=== PATIENT | female | born 1990 | race Caucasian/White ===

== ENCOUNTER 2017-02-23 08:00 | Emergency (ER) | payer OTHER ==
[2017-02-23] MEDS ORDERED: IBUPROFEN 400 MG TABLET (FP) PO ONE (08:10)
[2017-02-23 08:14] VITALS: BP 109/75; PULSE 63; TEMP 98.7; BMI 23.2
--- NOTE | 2017-02-23 08:19 | PDOC ---
History of Present Illness - General Chief Complaint: Injury Stated Complaint: LEFT KNEE PAIN Time Seen by Provider: 02/23/17 08:10 History Source: Patient Exam Limitations: No Limitations - History of Present Illness Initial Comments: 02/23/17 08:11 26y F hx of L aCL repair presents with L knee pain. Pt states she was playing in a soccer game last night and noticed increasing L knee pain throughout the game. There was no notable event preceding pain such as trauma/inujuries. She was able to finish out the agame but took some rest. This morning pt noticed increased swelling and pain when she is walking, she is unable to describe other particular movements that hurt her knee. Pt notes the pain seems most intense at the area where she had surgery. No other falls, neck pain, back pain , hip pain, numbness/tingling/weakness. pt used elevation, ice without significant improvement. ortho: [email or web address] Past History - Past Medical History Allergies/Adverse Reactions: Allergies Allergy/AdvReac Type Severity Reaction Status Date / Time No Known Allergies Allergy Verified 02/23/17 08:06 Home Medications: Ambulatory Orders NK [No Known Home Medication] 02/23/17 Review of Systems - Review of Systems Able to Perform ROS?: Yes Comments:: 02/23/17 08:13 Constitutional - no reported Fever, Chills, Musculskelatal - +knee pain no reported back pain, joint swelling skin - no reported bruising, erythema, rash neurological: no reported numbness, focal weakness, tingling, *Physical Exam - Physical Exam Comments: 02/23/17 08:14 GENERAL: The patient is awake, alert, and fully oriented, Nontoxic - in no acute distress. HEAD: Normocephalic, atraumatic. EXTREMITIES: LLE: normal ROM of hip, ankle, L KNee exam: no bruising/erytthema, mild swelling under patella, TTP sof ttissue to lateral aspect inferior to patella, +pain to range of knee at 30 degrees, +varus stress test no tibial tenderness NEUROLOGICAL: No facial assymetry, Normal speech, *DC/Admit/Observation/Transfer Diagnosis at time of Disposition: Strain of knee Qualifiers: Encounter type: initial encounter Laterality: left Qualified Code(s): S86.912A - Strain of unspecified muscle(s) and tendon(s) at lower leg level, left leg, initial encounter - Discharge Dispostion Disposition: HOME Condition at time of disposition: Good Admit: No - Referrals Referrals: Dago Espino MD [Primary Care Provider] - Arsen Clay MD [Staff Physician] - - Patient Instructions Printed Discharge Instructions: DI for Knee Sprain Additional Instructions: Return to the emergency department immediately with ANY new, persistent or worsening symptoms. Use your knee brace for support. Take ibuprofen every 6 hours for pain. Elevate, rest and ice your knee. Avoid any physical activity to allow your strain to heal. You MUST call and follow up with your orthopedic surgeon in 4-5 days for further evaluation of your symptoms. Results were discussed with you. Please make sure your doctor reviews the results of your emergency evaluation. Print Language: [email or web address]
== END 2017-02-23 08:25 | disposition home or self-care (01) ==
LOC: FER 08:00
PROC: 2W3RX1Z Immobilization of Left Lower Leg using Splint (ICD-10-PCS; principal; 2017-02-23)
DX: S86.912A Strain of unspecified muscle(s) and tendon(s) at lower leg level, left leg, initial encounter (principal); X58.XXXA Exposure to other specified factors, initial encounter; Y93.66 Activity, soccer; Y92.322 Soccer field as the place of occurrence of the external cause
CPT/HCPCS: 99281-25

== ENCOUNTER 2023-12-07 08:18 | Emergency (ER) | payer OTHER ==
[2023-12-07 08:35] VITALS: BP 136/86; PULSE 91; RESP 18; TEMP 98.3; BMI 29.2
[2023-12-07] MEDS ORDERED: ALBUTEROL SO4 HFA INHALER IH ONE (08:44)
[2023-12-07] MEDS: ALBUTEROL SO4 HFA INHALER IH ONE (08:45)
== END 2023-12-07 09:01 | disposition home or self-care (01) ==
LOC: FER 08:18
DX: R06.02 Shortness of breath (principal); R09.81 Nasal congestion; R07.89 Other chest pain; R05.9 Cough, unspecified; J45.998 Other asthma
CPT/HCPCS: 99283-25